=== PATIENT | male | born 1955 | race African-American/Black ===

== ENCOUNTER 2019-08-17 15:25 | Inpatient (IN) ==
[2019-08-17] MEDS ORDERED: ONDANSETRON 4 MG/2 ML VIAL IV STA (15:47)
[2019-08-17] MEDS ORDERED: SODIUM CHLORIDE 0.9% 1,000 ML IV STA (15:47)
[2019-08-17 16:33] LABS: Basophils % 0.2 % (0.0-0.8); Hematocrit 44.8 VOL% (42.0-52.0); Hemoglobin 14.4 GM/DL (14.0-18.0); Immature Granulocytes % 0.2 %; Immature Granulocytes Absolute 0.01 #; Lymphocytes # 0.8 10*3/uL (1.4-4.0); Lymphocytes % 18.7 % (21.2-54.2); Mean Corpuscular HGB Conc 32.1 GM/DL (32-36); Mean Corpuscular Volume 73.4 FL (87-102); Mean Platelet Volume 11.6 FL (9.6-12.0); Monocytes % 2.9 % (1.7-12.7); Platelet Count 230 T/CUMM (130-400); Red Cell Distribution Width 16.4 % (9.3-17.3); White Blood Count 4.2 T/CUMM (4-12)
[2019-08-17] MEDS ORDERED: PIPERACILLIN/TAZOBACTAM 3,375 MG in SODIUM CHLORIDE 0.9% 100 ML IV STA (16:47)
[2019-08-17] MEDS ORDERED: ALBUTEROL/IPRATROPIUM 3 ML NEB RESP TX STA (16:47)
[2019-08-17 17:05] LABS: Alanine Aminotransferase 54 U/L (16-61); Albumin 3.6 G/DL (3.4-5.0); Alkaline Phosphatase 72 U/L (45-117); Amylase 71 U/L (25-115); Anisocytosis 1+; Aspartate Amino Transferase 102 U/L (0-37); Band Neutrophils 11 % (0-10); Bilirubin,Total < 0.39 MG/DL (0.2-1.0); Blood Urea Nitrogen 28 MG/DL (7-18); Calcium 8.9 MG/DL (8.5-10.1); Estimated Glom Filtration Rate 81 ML/MIN; Glucose 105 MG/DL (74-106); Lymphocytes 11 % (20-55); Metamyelocytes 2 %; Microcytosis 1+; Osmolality,Calculated 275.1 MOS/KG (273-304); Platelet Estimate Normal; Reactive Lymphocytes Slight; Segmented Neutrophils 72 % (50-85); Total Cells Counted 100; Total Protein 8.2 G/DL (6.4-8.3); Troponin I 0.033 NG/ML (0.00-0.045)
[2019-08-17] MEDS ORDERED: MORPHINE 4 MG/1 ML VIAL IV PRN (17:32)
[2019-08-17] MEDS ORDERED: ONDANSETRON 4 MG/2 ML VIAL IV PRN (17:32)
[2019-08-17] MEDS ORDERED: ACETAMINOPHEN 325 MG TABLET PO PRN (17:32)
[2019-08-17] MEDS ORDERED: hydrALAZINE 20 MG/1 ML VIAL IV PRN (17:36)
[2019-08-17 17:41] LABS: Apearance,Urine Slightly Hazy (Clear); Bacteria,Urine Occasional /HPF (Few); Bilirubin,Urine Negative (Negative); Blood, Urine Moderate mg/dL (Negative); Glucose,Urine (UA) Negative (Negative); Hyaline Casts,Urine 13 /LPF (0-3); Ketones,Urine 20 mg/dL (Negative); Mucus,Urine Moderate /LPF (Occasional); Nitrite,Urine Negative (Negative); Protein,Urine 30 MG/DL; RBC,Urine 7 /HPF (0-4); Squamous Epithelial Cell,Urine Occasional /HPF (0-10); Urine Color Amber (Yellow); Urine Urobilinogen < 2.0 EU/DL (0.2-1.0); WBC,Urine 5 /HPF (0-6)
[2019-08-17] MEDS ORDERED: NICOTINE 14 MG/24 HR PATCH TRANSDERM PRN (18:00)
[2019-08-17] MEDS: SODIUM CHLORIDE 0.9% 1,000 ML IV SCH (18:45)
[2019-08-17] MEDS ORDERED: INFLUENZA VIRUS VACCINE 0.5 ML SYRINGE IM ONE (18:53)
[2019-08-17] MEDS: ALBUTEROL/IPRATROPIUM 3 ML NEB RESP TX SCH (19:31)
[2019-08-17] MEDS: ENOXAPARIN 40 MG/0.4 ML SYRINGE SUBCUT SCH (20:51)
[2019-08-17] MEDS: metroNIDAZOLE INJ 500 MG in PREMIX 1 EACH IV SCH (20:51)
[2019-08-17] MEDS: LEVOFLOXACIN INJ 750 MG in PREMIX 1 EACH IV SCH (21:54)
[2019-08-18] MEDS: ALBUTEROL/IPRATROPIUM 3 ML NEB RESP TX SCH ×4 (00:40→18:42)
[2019-08-18] MEDS: metroNIDAZOLE INJ 500 MG in PREMIX 1 EACH IV SCH ×4 (01:48→20:54)
[2019-08-18 05:11] LABS: Basophils % 0.3 % (0.0-0.8); Hemoglobin 12.8 GM/DL (14.0-18.0); Immature Granulocytes % 0.3 %; Immature Granulocytes Absolute 0.01 #; Mean Corpuscular Volume 73.5 FL (87-102); Mean Platelet Volume 11.3 FL (9.6-12.0); Neutrophils % 60.4 % (38.7-73.9); Platelet Count 198 T/CUMM (130-400); Red Blood Count 5.44 MC/CUMM (3.8-5.5); Red Cell Distribution Width 15.4 % (9.3-17.3)
[2019-08-18 05:38] LABS: Osmolality,Calculated 272.1 MOS/KG (273-304)
[2019-08-18] MEDS: SODIUM CHLORIDE 0.9% 1,000 ML IV SCH ×3 (08:00→17:49)
[2019-08-18] MEDS: PANTOPRAZOLE 40 MG TABLET PO SCH (09:42)
[2019-08-18] MEDS: ENOXAPARIN 40 MG/0.4 ML SYRINGE SUBCUT SCH (20:57)
[2019-08-18] MEDS: LEVOFLOXACIN INJ 750 MG in PREMIX 1 EACH IV SCH (22:07)
[2019-08-19] MEDS: ALBUTEROL/IPRATROPIUM 3 ML NEB RESP TX SCH ×4 (01:20→18:45)
[2019-08-19] MEDS: metroNIDAZOLE INJ 500 MG in PREMIX 1 EACH IV SCH ×2 (03:02→10:08)
[2019-08-19 05:57] LABS: Basophils % 0.3 % (0.0-0.8); Hematocrit 36.5 VOL% (42.0-52.0); Hemoglobin 11.8 GM/DL (14.0-18.0); Immature Granulocytes % 0.3 %; Immature Granulocytes Absolute 0.01 #; Lymphocytes # 1.1 10*3/uL (1.4-4.0); Mean Corpuscular HGB Conc 32.3 GM/DL (32-36); Mean Corpuscular Volume 73.3 FL (87-102); Mean Platelet Volume 11.2 FL (9.6-12.0); Monocytes % 6.6 % (1.7-12.7); Neutrophils % 61.8 % (38.7-73.9); Platelet Count 191 T/CUMM (130-400); Red Blood Count 4.98 MC/CUMM (3.8-5.5); Red Cell Distribution Width 15.5 % (9.3-17.3); White Blood Count 3.7 T/CUMM (4-12)
[2019-08-19 06:20] LABS: Calcium 7.7 MG/DL (8.5-10.1); Osmolality,Calculated 267.2 MOS/KG (273-304)
[2019-08-19] MEDS: SODIUM CHLORIDE 0.9% 1,000 ML IV SCH ×2 (06:29→16:45)
[2019-08-19] MEDS: PANTOPRAZOLE 40 MG TABLET PO SCH (09:19)
[2019-08-19] MEDS: VANCOMYCIN 50 MG/ML 60 ML/BOTTLE PO SCH ×2 (11:21→17:25)
[2019-08-19] MEDS: ENOXAPARIN 40 MG/0.4 ML SYRINGE SUBCUT SCH (20:57)
[2019-08-20] MEDS: VANCOMYCIN 50 MG/ML 60 ML/BOTTLE PO SCH ×4 (00:13→17:48)
[2019-08-20] MEDS: ALBUTEROL/IPRATROPIUM 3 ML NEB RESP TX SCH ×4 (01:08→19:36)
[2019-08-20] MEDS: SODIUM CHLORIDE 0.9% 1,000 ML IV SCH ×2 (01:35→09:39)
[2019-08-20] MEDS: PANTOPRAZOLE 40 MG TABLET PO SCH (09:39)
[2019-08-20] MEDS: ENOXAPARIN 40 MG/0.4 ML SYRINGE SUBCUT SCH (21:17)
[2019-08-21] MEDS: VANCOMYCIN 50 MG/ML 60 ML/BOTTLE PO SCH ×3 (00:20→12:13)
[2019-08-21] MEDS: ALBUTEROL/IPRATROPIUM 3 ML NEB RESP TX SCH ×3 (00:20→13:50)
[2019-08-21 05:40] LABS: Basophils % 0.2 % (0.0-0.8); Eosinophils % 0.7 % (0.00-10.9); Hematocrit 37.1 VOL% (42.0-52.0); Hemoglobin 11.8 GM/DL (14.0-18.0); Immature Granulocytes % 0.5 %; Immature Granulocytes Absolute 0.02 #; Lymphocytes # 1.9 10*3/uL (1.4-4.0); Lymphocytes % 44.7 % (21.2-54.2); Mean Corpuscular HGB Conc 31.8 GM/DL (32-36); Mean Corpuscular Volume 73.2 FL (87-102); Monocytes % 7.5 % (1.7-12.7); Neutrophils % 46.4 % (38.7-73.9); Platelet Count 199 T/CUMM (130-400); Red Blood Count 5.07 MC/CUMM (3.8-5.5); Red Cell Distribution Width 15.2 % (9.3-17.3); White Blood Count 4.3 T/CUMM (4-12)
[2019-08-21 05:58] LABS: Calcium 7.9 MG/DL (8.5-10.1)
[2019-08-21 06:01] LABS: Atypical Lymphocytes Few; Hypochromasia 2+; Lymphocytes 38 % (20-55); Segmented Neutrophils 52 % (50-85); Total Cells Counted 100
[2019-08-21 06:02] LABS: Microcytosis 1+; Ovalocytes Slight; Platelet Estimate Adequate; Target Cells Slight
[2019-08-21] MEDS: PANTOPRAZOLE 40 MG TABLET PO SCH (09:53)
[2019-08-21] MEDS ORDERED: DOXYLAMINE PO PRN (14:33)
[2019-08-21] MEDS ORDERED: ACETAMINOPHEN PO PRN (14:33)
[2019-08-21] MEDS ORDERED: [UNRECOGNIZED DRUG - OTHER] PO PRN (14:33)
[2019-08-21] MEDS ORDERED: DEXTROMETHORPHAN PO PRN (14:33)
[2019-08-21 16:05] VITALS: BP 132/79
== END 2019-08-21 16:11 | disposition home or self-care (01) | DRG 371 ==
LOC: N.ED 15:25 → N.EDINP 17:32 → SUPCPDRO 17:32 → SUATTDRO 17:32 → N.EDINP 18:15 → N.5E 18:26
PROVIDERS: ADMIT Internal Medicine Geriatric Medicine; ATTEND Family Medicine